=== PATIENT | female | born 1980 | race American Indian/Alaskan Native ===

== ENCOUNTER 2018-06-17 20:21 | Emergency (ER) | payer SELFPAY ==
[2018-06-17 21:38] LABS: Basophils # (Auto) 0.1 K/mm3 (0.0-0.1); Basophils % (Auto) 0.6 % (0.0-1.8); Eosinophils # (Auto) 0.2 K/mm3 (0.0-0.4); Eosinophils % (Auto) 1.4 % (0.0-4.3); Hematocrit 39.3 % (30.3-42.9); Lymphocytes # (Auto) 2.5 K/mm3 (1.2-5.4); Lymphocytes % (Auto) 20.2 % (13.4-35.0); Mean Corpuscular HGB Conc 33 % (30-34); Mean Corpuscular Hemoglobin 28 pg (28-32); Mean Corpuscular Volume 84 fl (79-97); Monocytes # (Auto) 0.5 K/mm3 (0.0-0.8); Monocytes % (Auto) 4.2 % (0.0-7.3); Platelet Count 426 K/mm3 (140-440); Red Blood Count 4.66 M/mm3 (3.65-5.03); Red Cell Distribution Width 13.8 % (13.2-15.2)
[2018-06-17 21:52] LABS: BUN/Creatinine Ratio 8; Blood Urea Nitrogen 5 mg/dL (7-17); Calcium 9.1 mg/dL (8.4-10.2); Hemolysis Index 6
--- NOTE | 2018-06-17 22:54 | XRay Report ---
FINAL REPORT EXAM: XR CHEST ROUTINE 2V HISTORY: Shortness of breath TECHNIQUE: Two view chest PA and lateral PRIORS: None. FINDINGS: Cardiac and mediastinal contours are unremarkable. No focal pulmonary infiltrate is identified. No pleural fluid collection seen. Pulmonary vasculature is unremarkable. IMPRESSION: Negative two-view chest
[2018-06-18] MEDS ORDERED: TESSALON PERLES PO ONE (01:03)
[2018-06-18] MEDS ORDERED: DELTASONE PO ONE (01:03)
[2018-06-18] MEDS ORDERED: ULTRAM PO ONE (01:04)
[2018-06-18] MEDS ORDERED: TRIMOX PO ONE (01:04)
--- NOTE | 2018-06-18 01:12 | Emergency Department Report ---
ED General Adult HPI - General Chief complaint: Upper Respiratory Infection Stated complaint: CHEST PAIN Time Seen by Provider: 06/18/18 00:55 Source: patient Mode of arrival: Ambulatory Limitations: No Limitations - History of Present Illness Initial comments: Patient presents to the [facility] department with a chief complaint of bronchitis. Patient states she's been coughing for the last 2 weeks with production of a green sputum. Patient does endorse in the daily smoker. Patient complains of chest pain with cough but other than that she has no chest pain. Patient has fever, shortness breath, abdominal pain. -: Gradual Radiation: non-radiation Severity scale (0 -10): 0 Consistency: constant Improves with: none Worsens with: none Associated Symptoms: denies other symptoms Treatments Prior to Arrival: none - Related Data Previous Rx's Medication Instructions Recorded Last Taken Type ALBUTEROL Inhaler [ProAir HFA 2 puff IH QID PRN #1 inhalation 06/18/18 Unknown Rx Inhaler] Amoxicillin [Trimox] 500 mg PO Q6HR #30 capsule 06/18/18 Unknown Rx Codeine Phosphate/Guaifenesin 10 ml PO Q12HR PRN #180 liquid 06/18/18 Unknown Rx [Guaifen-Codeine 200-20 mg/10Ml] Prednisone 50 mg PO DAILY 5 Days tablet 06/18/18 Unknown Rx traMADol [Ultram] 50 mg PO Q6HR PRN #12 tablet 06/18/18 Unknown Rx Allergies Allergy/AdvReac Type Severity Reaction Status Date / Time ketorolac [From Toradol] Allergy Hives Verified 06/17/18 20:45 ED Review of Systems ROS: Stated complaint: CHEST PAIN Other details as noted in HPI Comment: All other systems reviewed and negative Constitutional: denies: chills, fever Eyes: denies: eye pain, eye discharge, vision change ENT: denies: ear pain, throat pain Respiratory: denies: cough, shortness of breath, wheezing Cardiovascular: denies: chest pain, palpitations Endocrine: no symptoms reported Gastrointestinal: denies: abdominal pain, nausea, diarrhea Genitourinary: denies: urgency, dysuria, discharge Musculoskeletal: denies: back pain, joint swelling, arthralgia Skin: denies: rash, lesions Neurological: denies: headache, weakness, paresthesias Psychiatric: denies: anxiety, depression Hematological/Lymphatic: denies: easy bleeding, easy bruising ED Past Medical Hx - Past Medical History Hx COPD: Yes Additional medical history: bronchitis - Surgical History Additional Surgical History: c sect, hysterectomy - Social History Smoking Status: Current Every Day Smoker Substance Use Type: Alcohol - Medications Home Medications: Home Medications Medication Instructions Recorded Confirmed Last Taken Type ALBUTEROL Inhaler [ProAir HFA 2 puff IH QID PRN #1 inhalation 06/18/18 Unknown Rx Inhaler] Amoxicillin [Trimox] 500 mg PO Q6HR #30 capsule 06/18/18 Unknown Rx Codeine Phosphate/Guaifenesin 10 ml PO Q12HR PRN #180 liquid 06/18/18 Unknown Rx [Guaifen-Codeine 200-20 mg/10Ml] Prednisone 50 mg PO DAILY 5 Days tablet 06/18/18 Unknown Rx traMADol [Ultram] 50 mg PO Q6HR PRN #12 tablet 06/18/18 Unknown Rx ED Physical Exam - General Limitations: No Limitations General appearance: alert, in no apparent distress - Head Head exam: Present: atraumatic, normocephalic - Eye Eye exam: Present: normal appearance, PERRL, EOMI - ENT ENT exam: Present: mucous membranes moist - Neck Neck exam: Present: normal inspection - Respiratory Respiratory exam: Present: normal lung sounds bilaterally. Absent: respiratory distress, wheezes, rales - Cardiovascular Cardiovascular Exam: Present: regular rate, normal rhythm. Absent: systolic murmur, diastolic murmur, rubs, gallop - GI/Abdominal GI/Abdominal exam: Present: soft, normal bowel sounds. Absent: distended, tenderness - Extremities Exam Extremities exam: Present: normal inspection - Back Exam Back exam: Present: normal inspection - Neurological Exam Neurological exam: Present: alert, oriented X3, CN II-XII intact. Absent: motor sensory deficit - Psychiatric Psychiatric exam: Present: normal affect, normal mood - Skin Skin exam: Present: warm, dry, intact, normal color. Absent: rash ED Course Vital Signs 06/17/18 20:31 Temperature 98.7 F Respiratory 18 Rate Blood Pressure 126/86 ED Medical Decision Making - Lab Data Result diagrams: 06/17/18 21:16 06/17/18 21:16 - Medical Decision Making Discussed plan of care with patient Critical care attestation.: If time is entered above; I have spent that time in minutes in the direct care of this critically ill patient, excluding procedure time. ED Disposition Clinical Impression: Bronchitis Disposition: DC- TO HOME OR SELFCARE Is pt being admited?: No Does the pt Need Aspirin: No Condition: Stable Instructions: Chronic Bronchitis (ED) Additional Instructions: Return if worse Prescriptions: ALBUTEROL Inhaler [ProAir HFA Inhaler] 2 puff IH QID PRN #1 inhalation PRN Reason: Shortness Of Breath Amoxicillin [Trimox] 500 mg PO Q6HR #30 capsule Codeine Phosphate/Guaifenesin [Guaifen-Codeine 200-20 mg/10Ml] 10 ml PO Q12HR PRN #180 liquid PRN Reason: Cough Prednisone 50 mg PO DAILY 5 Days tablet traMADol [Ultram] 50 mg PO Q6HR PRN #12 tablet PRN Reason: Pain Referrals: PRIMARY CARE, [Primary Care Provider] - 3-5 Days [facility] [Outside] - 3-5 Days [facility] [Outside] - 3-5 Days PEACE TINOCO MD [Staff Physician] - 3-5 Days Time of Disposition: 01:07
[2018-06-18 01:56] VITALS: BP 126/82
== END 2018-06-18 01:57 | disposition home or self-care (01) ==
LOC: ED 20:21
DX: J20.9 Acute bronchitis, unspecified (principal); R10.9 Unspecified abdominal pain; J44.9 Chronic obstructive pulmonary disease, unspecified; F17.200 Nicotine dependence, unspecified, uncomplicated; Z90.710 Acquired absence of both cervix and uterus; Z88.6 Allergy status to analgesic agent
CPT/HCPCS: 36415; 71046; 80048; 85025; 93005; 93010; 99284; J7512